=== PATIENT | male | born 1960 | race Caucasian/White ===

== ENCOUNTER 2024-08-16 17:24 | Emergency (ER) | payer SELFPAY ==
[2024-08-16] VITALS (7 sets, daily range): BP systolic 154–165; BP diastolic 94–116; PULSE 50–88; RESP 18–20; TEMP 36.6–37.1; O2SAT 96–99; BMI 28.5
--- NOTE | 2024-08-16 17:27 | ED_ITS ---
<Statement entered by Toma Bravo DO - 08/16/24 19:53> I was consulted by the AROLDO, and we discussed the complexity of the problems being addressed. I approved the treatment and management plan for this patient's care in the emergency department, thus performing a substantive portion of the medical decision making. Toma Bravo DO Discharge Plan Disposition Patient Disposition: Home, Self-Care Condition: Good Prescriptions Prescriptions: New ketorolac 10 mg tablet 10 mg PO Q8H PRN (Reason: pain) 1 Days Qty: 14 0RF tamsulosin 0.4 mg capsule 0.4 mg PO HS Qty: 14 0RF ondansetron 4 mg tablet,disintegrating 4 mg PO QID PRN (Reason: nausea and vomiting) Qty: 10 0RF oxycodone 5 mg tablet 5 mg PO Q8H PRN (Reason: pain) Qty: 12 0RF Referrals Follow up/Referrals: Manav Forte MD [Referring, Urology] - See instructions Julio Galvan MD [Referring, Urology] - See instructions Activity Restrictions/Add. Instructions Additional Instructions/Restrictions: As we discussed I sent medication into your pharmacy. Please strain all your urine. If you develop fever increasing pain or any worsening symptoms please return to the emergency department. I have given you the name of Dr. Galvan who operates in [place] and Dr. Forte who operates in [place]. Clinical Impressions Clinical Impression: Ureterolithiasis Instructions Patient Instructions: DI for Urinary Tract Infection (UTI), DI for Urinary Tract Infection in Children Print Language Print Language: Uzbek Discharge ED Provider: Toma Bravo General Adult HPI <ANGELIA King - Last Filed: 08/16/24 19:16> General Chief complaint: Urogenital-Male Stated complaint: Pain left side,possible kidney stone Time Seen by Provider: 08/16/24 17:27 History of Present Illness HPI narrative: Patient presents for evaluation of left flank pain. Patient had acute onset of left flank pain this afternoon. He reports that it is unchanged. He has a long history of kidney stones and states that he as far as he knows never passed 1 on the stone that he has always had to have either lithotripsy or have it surgically removed. He denies any fever chills shortness of breath hemoptysis hematochezia melena he has nausea but no vomiting or diarrhea. Related Data Previous Rx's ?Medication ?Instructions ?Recorded ketorolac 10 mg tablet 10 mg PO Q8H PRN pain 1 day #14 08/16/24 tabs ondansetron 4 mg disintegrating 4 mg PO QID PRN nausea and 08/16/24 tablet vomiting #10 tabs oxycodone 5 mg tablet 5 mg PO Q8H PRN pain #12 tab s 08/16/24 tamsulosin 0.4 mg capsule 0.4 mg PO HS #14 caps Allergies Allergy/AdvReac Type Severity Reaction Status Date / Time No Known Allergies Allergy Verified 08/16/24 17:38 [facility] <ANGELIA King - Last Filed: 08/16/24 19:16> [facility] Disclaimer: The information contained in this section may have been updated after the patient was seen, as this information can be updated by other users. Social History (Updated 08/16/24 @ 19:16 by ANGELIA King) Smoking Status: Never smoker alcohol intake: never current occupational status: employed Travel in the last 8 weeks?: None Have you lived/traveled outside [place] in past 30 days?: No Contact w/someone who lives/traveled outside US past 30 days?: No Exposure to someone with infectious disease in past 14 days?: No Do you have a fever (greater than 100.4 F or 38 C)?: No Have you tested positive for COVID-19?: No Exposed to someone with COVID-19 in past 14 days?: No Do you have a sore throat?: No Do you have a cough?: No Do you have any weakness?: No Do you have any diarrhea?: No Are you experiencing any unusual bleeding?: No Do you have any muscle aches/pain?: No Do you have any abdominal pain?: No Are you experiencing loss of taste or smell?: No <ANGELIA King - Last Filed: 08/16/24 19:16> ROS Obtained: Yes Systems reviewed as appropriate & no additional complaints except as documented Physical Exam <ANGELIA King - Last Filed: 08/16/24 19:16> General General appearance: alert and in no apparent distress Respiratory Respiratory exam: Present normal lung sounds bilaterally Cardiovascular Cardiovascular exam: Present regular rate Neurological Exam Neurological exam: Present alert and oriented X3 Medical Decision Making <ANGELIA King - Last Filed: 08/16/24 19:16> Medical Records Medical records reviewed: Yes I reviewed the patient's medical records. Screening: Per USPSTF and CDC recommendations, given the prevalence of disease in our region, it is our hospital?s policy to screen for HIV and viral Hepatitis for all patients aged 18 and over and those with ongoing risk factors. Gavin Inquiry Pt receiving controlled substance: No Vital Signs: 08/16/24 17:31 08/16/24 17:32 08/16/24 18:01 Temperature 98.7 F Temperature Source Oral Pulse Rate 55 L 50 L Pulse Rate [Right] 88 Respiratory Rate 20 Blood Pressure 165/116 H 162/94 H Blood Pressure [Right Arm] 165/116 H Blood Pressure Mean 124 127 Blood Pressure Mean [Right Arm] 132 Blood Pressure Source Blood Pressure Position 02 Sat by Pulse Oximetry 99 98 97 Oxygen Delivery Method Room Air 08/16/24 18:31 08/16/24 19:00 08/16/24 19:14 Temperature Temperature Source Pulse Rate 55 L 54 L 54 L Pulse Rate [Right] Respiratory Rate Blood Pressure 162/103 H 156/94 H 154/95 H Blood Pressure [Right Arm] Blood Pressure Mean 122 Blood Pressure Mean [Right Arm] Blood Pressure Source Blood Pressure Position 02 Sat by Pulse Oximetry 97 96 96 Oxygen Delivery Method Room Air 08/16/24 19:34 Temperature 98 F Temperature Source Oral Pulse Rate 60 Pulse Rate [Right] Respiratory Rate 18 Blood Pressure 154/95 H Blood Pressure [Right Arm] Blood Pressure Mean Blood Pressure Mean [Right Arm] Blood Pressure Source Automatic Cuff Blood Pressure Position Sitting 02 Sat by Pulse Oximetry Oxygen Delivery Method Room Air Lab Data Lab results reviewed: Yes I reviewed the patient's lab results. Lab Results 08/16/24 17:30: Urine Color Yellow, Urine Appearance Clear, Urine pH 6.0, Ur Specific [place] >= 1.030, Urine Protein Trace, Urine Glucose (UA) Negative, Urine Ketones Negative, Urine Blood 3+ A, Urine Nitrate Negative, Urine Bilirubin Negative, Urine Urobilinogen 0.2, Ur Leukocyte Esterase Negative, Urine RBC 20-50, Urine WBC Occasional, Ur Squamous Epith Cells Occasional, Urine Bacteria Trace, Hyaline Casts Occ, Urine Mucus 1+ 08/16/24 17:41: WBC 8.0, RBC 4.79, Hgb 14.3, Hct 40.9 L, MCV 85.4, MCH 29.9, MCHC 35.0, RDW 12.4, Plt Count 249, MPV 10.7 H, Neut % (Auto) 74.8, Lymph % (Auto) 15.8, [place] % (Auto) 7.0, Eos % (Auto) 1.1, Baso % (Auto) 0.8, Neut # (Auto) 6.0, Lymph # (Auto) 1.3, [place] # (Auto) 0.6, Eos # (Auto) 0.1, Baso # (Auto) 0.1, Sodium 139, Potassium 4.2, Chloride 104, Carbon Dioxide 27, Anion Gap 12.2, BUN 21 H, Creatinine 0.80, Estimated Creat Clear 105, Estimated GFR 98, Est GFR ( Amer) 119, Glucose 116 H, Calcium 10.0, Total Bilirubin 1.4 H, AST 27, ALT 18, Alkaline Phosphatase 64, Total Protein 7.5, Albumin 4.9, Globulin 2.6, Albumin/Globulin Ratio 1.9 H 08/16/24 17:41 08/16/24 17:41 Orders (Tests/Meds): ED MEDICATIONS Discontinued Medications Generic Name Dose Route Start Last Admin Trade Name Radha PRN Reason Stop Dose Admin Acetaminophen 1,000 mg 08/16/24 17:32 08/16/24 17:42 Acetaminophen 500mg Tab PO 08/16/24 17:33 1,000 mg ONCE ONE Administration Hydromorphone HCl 1 mg 08/16/24 17:58 08/16/24 18:10 Hydromorphone 2mg/Ml Syringe IV 08/16/24 17:59 Not Given ONCE ONE Sodium Chloride 1,000 mls @ 999 mls/hr 08/16/24 17:32 08/16/24 17:42 Sod Chlor 0.9% 1000ml Bag IV 08/16/24 18:32 999 mls/hr .Q1H1M ONE Administration Iopamidol 75 ml 08/16/24 18:20 08/16/24 18:21 Iopamidol-370 (76%);100ml Bottle IV 08/16/24 18:21 75 ml ONCE ONE Administration Ketorolac Tromethamine 15 mg 08/16/24 17:32 08/16/24 17:42 Ketorolac 30mg/Ml Vial IV 08/16/24 17:33 15 mg ONCE ONE Administration Ondansetron HCl 4 mg 08/16/24 17:32 08/16/24 17:43 Ondansetron 4mg/2ml Vial IV 08/16/24 17:33 4 mg ONCE ONE Administration Oxycodone HCl 5 mg 08/16/24 18:46 08/16/24 18:53 Oxycodone 5mg Immediate Release Tablet PO 08/16/24 18:47 5 mg ONCE ONE Administration Sodium Chloride 10 ml 08/16/24 18:20 08/16/24 18:21 Sodium Chloride 0.9% 10ml Syr (Rad Only) IV 08/16/24 18:21 10 ml ONCE ONE Administration Tamsulosin HCl 0.4 mg 08/16/24 17:33 08/16/24 17:42 Tamsulosin 0.4mg Capsule PO 08/16/24 17:34 0.4 mg ONCE ONE Administration ORDERS Category Date Time Status CT abdomen pelvis w con Stat Cat Scan 08/16/24 17:32 Completed CBC w/Auto Diff [Complete Blood Count Auto Diff] Stat Lab 08/16/24 17:41 Completed CMP [Comprehensive Metabolic Panel] Stat Lab 08/16/24 17:41 Completed UA [Urinalysis and Microscopic] Stat Lab 08/16/24 17:30 Completed Medical Decision Narrative: In summary patient is a 63-year-old male who presents to the emergency department for evaluation of left flank pain. Patient is hypertensive on arrival blood pressure 165/116 heart rate 88 sinus rhythm on the bedside monitor breathing 20 times a minute satting 98% on room air upon arrival, afebrile at 90.7. Physical exam is remarkable for tenderness to palpation in the left upper quadrant and CVA tenderness to percussion on the left negative on the right the remainder abdominal exam is benign soft nontender no rebound or guarding or rigidity. Bowel sounds normal active.. Differential diagnosis includes kidney stone versus diverticulitis versus constipation versus gastroenteritis etc. Initial workup will be conducted with hematologic labs urinalysis CT scan abdomen pelvis. Initial interventions include crystalloid bolus Tylenol Toradol Zofran. Initial workup reviewed by me and his hematologic labs show a white count of 8 normal hemoglobin and hematocrit with no neutrophilic shift. BUN is 21 creatinine is 0.8 GFR is 98 and the remainder of his hematologic labs are nonactionable. Urinalysis shows 3+ blood nitrite AzaSite esterase negative. My informed interpretation of his CT scan abdomen pelvis shows stranding around the left kidney along with ureteral dilation down to the point of a mid ureteral stone that appears to be approximately 8 mm in size. Upon repeat evaluation patient reports that his pain is completely gone now. Given this I had a shared decision-making discussion with the patient and explained the options of going home with follow-up with outpatient urology versus transfer. Which I feel is reasonable for going home as he has no evidence of fever urinary tract infection or other red flags. Patient is also comfortable with going home with follow-up with urology as an outpatient. Given that patient will be discharged home with prescription for Toradol Zofran and tamsulosin and the names of urologist in [place] and [place] and strict return precautions. <Toma Bravo, DO - Last Filed: 08/16/24 19:53> Gavin Inquiry Pt receiving controlled substance: Yes Gavin was queried for this patient: Yes Risks and benefits of using a controlled substance: were discussed with pt by me Vital Signs: 08/16/24 17:31 08/16/24 17:32 08/16/24 18:01 Temperature 98.7 F Temperature Source Oral Pulse Rate 55 L 50 L Pulse Rate [Right] 88 Respiratory Rate 20 Blood Pressure 165/116 H 162/94 H Blood Pressure [Right Arm] 165/116 H Blood Pressure Mean 124 127 Blood Pressure Mean [Right Arm] 132 Blood Pressure Source Blood Pressure Position 02 Sat by Pulse Oximetry 99 98 97 Oxygen Delivery Method Room Air 08/16/24 18:31 08/16/24 19:00 08/16/24 19:14 Temperature Temperature Source Pulse Rate 55 L 54 L 54 L Pulse Rate [Right] Respiratory Rate Blood Pressure 162/103 H 156/94 H 154/95 H Blood Pressure [Right Arm] Blood Pressure Mean 122 Blood Pressure Mean [Right Arm] Blood Pressure Source Blood Pressure Position 02 Sat by Pulse Oximetry 97 96 96 Oxygen Delivery Method Room Air 08/16/24 19:34 Temperature 98 F Temperature Source Oral Pulse Rate 60 Pulse Rate [Right] Respiratory Rate 18 Blood Pressure 154/95 H Blood Pressure [Right Arm] Blood Pressure Mean Blood Pressure Mean [Right Arm] Blood Pressure Source Automatic Cuff Blood Pressure Position Sitting 02 Sat by Pulse Oximetry Oxygen Delivery Method Room Air Lab Data Lab Results 08/16/24 17:30: Urine Color Yellow, Urine Appearance Clear, Urine pH 6.0, Ur Specific [place] >= 1.030, Urine Protein Trace, Urine Glucose (UA) Negative, Urine Ketones Negative, Urine Blood 3+ A, Urine Nitrate Negative, Urine Bilirubin Negative, Urine Urobilinogen 0.2, Ur Leukocyte Esterase Negative, Urine RBC 20-50, Urine WBC Occasional, Ur Squamous Epith Cells Occasional, Urine Bacteria Trace, Hyaline Casts Occ, Urine Mucus 1+ 08/16/24 17:41: WBC 8.0, RBC 4.79, Hgb 14.3, Hct 40.9 L, MCV 85.4, MCH 29.9, MCHC 35.0, RDW 12.4, Plt Count 249, MPV 10.7 H, Neut % (Auto) 74.8, Lymph % (Auto) 15.8, [place] % (Auto) 7.0, Eos % (Auto) 1.1, Baso % (Auto) 0.8, Neut # (Auto) 6.0, Lymph # (Auto) 1.3, [place] # (Auto) 0.6, Eos # (Auto) 0.1, Baso # (Auto) 0.1, Sodium 139, Potassium 4.2, Chloride 104, Carbon Dioxide 27, Anion Gap 12.2, BUN 21 H, Creatinine 0.80, Estimated Creat Clear 105, Estimated GFR 98, Est GFR ( Amer) 119, Glucose 116 H, Calcium 10.0, Total Bilirubin 1.4 H, AST 27, ALT 18, Alkaline Phosphatase 64, Total Protein 7.5, Albumin 4.9, Globulin 2.6, Albumin/Globulin Ratio 1.9 H Orders (Tests/Meds): ED MEDICATIONS Discontinued Medications Generic Name Dose Route Start Last Admin Trade Name Freq PRN Reason Stop Dose Admin Acetaminophen 1,000 mg 08/16/24 17:32 08/16/24 17:42 Acetaminophen 500mg Tab PO 08/16/24 17:33 1,000 mg ONCE ONE Administration Hydromorphone HCl 1 mg 08/16/24 17:58 08/16/24 18:10 Hydromorphone 2mg/Ml Syringe IV 08/16/24 17:59 Not Given ONCE ONE Sodium Chloride 1,000 mls @ 999 mls/hr 08/16/24 17:32 08/16/24 17:42 Sod Chlor 0.9% 1000ml Bag IV 08/16/24 18:32 999 mls/hr .Q1H1M ONE Administration Iopamidol 75 ml 08/16/24 18:20 08/16/24 18:21 Iopamidol-370 (76%);100ml Bottle IV 08/16/24 18:21 75 ml ONCE ONE Administration Ketorolac Tromethamine 15 mg 08/16/24 17:32 08/16/24 17:42 Ketorolac 30mg/Ml Vial IV 08/16/24 17:33 15 mg ONCE ONE Administration Ondansetron HCl 4 mg 08/16/24 17:32 08/16/24 17:43 Ondansetron 4mg/2ml Vial IV 08/16/24 17:33 4 mg ONCE ONE Administration Oxycodone HCl 5 mg 08/16/24 18:46 08/16/24 18:53 Oxycodone 5mg Immediate Release Tablet PO 08/16/24 18:47 5 mg ONCE ONE Administration Sodium Chloride 10 ml 08/16/24 18:20 08/16/24 18:21 Sodium Chloride 0.9% 10ml Syr (Rad Only) IV 08/16/24 18:21 10 ml ONCE ONE Administration Tamsulosin HCl 0.4 mg 08/16/24 17:33 08/16/24 17:42 Tamsulosin 0.4mg Capsule PO 08/16/24 17:34 0.4 mg ONCE ONE Administration ORDERS Category Date Time Status CT abdomen pelvis w con Stat Cat Scan 08/16/24 17:32 Completed CBC w/Auto Diff [Complete Blood Count Auto Diff] Stat Lab 08/16/24 17:41 Completed CMP [Comprehensive Metabolic Panel] Stat Lab 08/16/24 17:41 Completed UA [Urinalysis and Microscopic] Stat Lab 08/16/24 17:30 Completed Critical Care <ANGELIA King - Last Filed: 08/16/24 19:16> Critical Care Time Critical Care Time: Yes Attestation: On 08/16/24, the high probability of a clinically significant, sudden or life threatening deterioration of the following system(s) required my full and direct attention, intervention and personal management. The time I documented below is in addition to time spent performing reported procedures but includes the following listed in this critical care notation. Total Time Total Critical Care Time: 30
--- NOTE | 2024-08-16 17:32 | CT_ITS ---
PROCEDURE INFORMATION: Exam: CT Abdomen And Pelvis With Contrast Exam date and time: 08/16/2024 6:17 PM Age: 63 years old Clinical indication: Abdominal pain; Additional info: Left flank pain TECHNIQUE: Imaging protocol: Computed tomography of the abdomen and pelvis with contrast. Radiation optimization: All CT scans at this facility use at least one of these dose optimization techniques: automated exposure control; mA and/or kV adjustment per patient size (includes targeted exams where dose is matched to clinical indication); or iterative reconstruction. Contrast material: ISOVUE; Contrast volume: 75 ml; Contrast route: IV; COMPARISON: No relevant prior studies available. FINDINGS: Lungs: Dependent bilateral lung base opacities favor atelectasis. Liver: Multiple hypoattenuating circumscribed structures of the liver compatible with simple hepatic cysts with the largest measuring 2.7 cm in diameter. Gallbladder and biliary ducts: Normal. No calcified stones. No ductal dilation. Pancreas: Normal. No ductal dilation. Spleen: Multiple benign-appearing calcific densities of the spleen. Adrenal glands: Normal. No mass. Kidneys and ureters: Left proximal ureteral calcific density compatible with ureterolith is related to moderate left hydronephrosis and hydroureter and measures up to 8.1 mm. Stomach and bowel: Unremarkable. No obstruction. No mucosal thickening. Appendix: No evidence of appendicitis. Intraperitoneal space: Unremarkable. No free air. No significant fluid collection. Vasculature: Mild calcific atherosclerotic disease is scattered throughout the abdominal aorta without aneurysmal dilatation. Lymph nodes: Unremarkable. No enlarged lymph nodes. Urinary bladder: Unremarkable as visualized. Reproductive: Unremarkable as visualized. Bones/joints: Moderate loss of intervertebral disc space with degenerative changes involving L2 through S1. Bilateral pars defects of L5 with grade 1 anterolisthesis of L5 over S1. Soft tissues: Normal. IMPRESSION: Moderate left hydronephrosis and hydroureter related to left proximal ureterolith as described above.
[2024-08-16 17:37] LABS: Microscopic, Urine URINE MICROSCOPIC (MICROSCOPIC)
[2024-08-16 17:41] LABS: Appearance,Urine CLEAR (Clear); Bilirubin,Urine Negative (Negative); Blood, Urine 3+ (Negative); Color,Urine YELLOW (Yellow); Glucose,Urine (UA) Negative (Negative); Ketones,Urine Negative (Negative); Leukocyte Esterase,Urine Negative (Negative); Nitrate,Urine Negative (Negative); Protein,Urine TRACE (Negative); Specific Gravity, Urine >= 1.030 (1.005-1.030); Urobilinogen,Urine 0.2 EU/dl (0.2)
[2024-08-16] MEDS: TAMSULOSIN 0.4MG CAPSULE 0.4 MG PO (17:42)
[2024-08-16] MEDS: 0.9 % SODIUM CHLORIDE 1000ML 1,000 ML 999 ML IV (17:42)
[2024-08-16] MEDS: KETOROLAC 30MG/ML VIAL 15 MG IV (17:42)
[2024-08-16] MEDS: ACETAMINOPHEN 500MG TAB 1000 MG PO (17:42)
[2024-08-16] MEDS: ONDANSETRON 4MG/2ML VIAL 4 MG IV (17:43)
[2024-08-16 17:51] LABS: Basophils # 0.1 K/mm3 (0-0.2); Basophils % 0.8 % (0.1-2.0); Eosinophils # 0.1 Kmm3 (0.0-0.4); Eosinophils % 1.1 % (0.1-12.0); Hematocrit 40.9 % (42.0-52.0); Hemoglobin 14.3 g/dL (14.1-18.0); Immature Granulocytes # 0.04 10^3uL; Immature Granulocytes % 0.5 %; Lymphocytes # 1.3 K/mm3 (0.7-4.5); Lymphocytes % 15.8 % (10-50); Mean Corpuscular Hemoglobin 29.9 pg (27.0-31.2); Mean Corpuscular Volume 85.4 fl (80-94); Mean Platelet Volume 10.7 fl (7.4-10.4); Monocytes # 0.6 K/mm3 (0.1-1.0); Neutrophils % 74.8 % (37.0-80.0); Nucleated Red Blood Cells # 0 10^3/uL; Nucleated Red Blood Cells % 0 %; Platelet Count 249 K/mm3 (142-424); Red Blood Count 4.79 M/mm3 (4.60-6.20); Red Cell Distribution Width 12.4 % (11.5-17.5); Red Cell Distribution Width-SD 38.6 fL
[2024-08-16 18:01] LABS: Alanine Aminotransferase 18 U/L (12-78); Albumin Level 4.9 g/dl (3.5-5.0); Albumin/Globulin Ratio 1.9 (1.1-1.8); Alkaline Phosphatase 64 U/L (38-126); Anion Gap 12.2 mEq/L (5-15); Aspartate Amino Transferase 27 U/L (17-59); Bilirubin,Total 1.4 mg/dl (0.2-1.3); Blood Urea Nitrogen 21 mg/dl (9-20); Carbon Dioxide 27 mmol/L (22.0-30.0); Chloride 104 mmol/L (98-107); Creatinine Clearance Estimated 105 mL/min (50-200); Estimated Glomerular Filt Rate 98 ml/min (>60); GFR (African American) 119 ML/MIN (>60); Globulin 2.6 g/dL (1.3-3.2); Glucose 116 mg/dl (74-100); Potassium 4.2 mmoL/L (3.5-5.1); Sodium 139 mmol/L (136-145); Total Protein,Serum 7.5 g/dl (6.3-8.2)
[2024-08-16] MEDS: SODIUM CHLORIDE 0.9% 10ML SYR (RAD ONLY) 10 ML IV (18:21)
[2024-08-16] MEDS: IOPAMIDOL-370 (76%);100ML BOTTLE 75 ML IV (18:21)
[2024-08-16] MEDS: OXYCODONE 5MG IMMEDIATE RELEASE TABLET 5 MG PO (18:53)
[2024-08-16 19:28] LABS: RBC,Urine 20-50 #/hpf (0-3); Squamous Epithelial Cell,Urine Occasional #/hpf (0-5); WBC,Urine Occasional #/hpf (0-3)
[2024-08-16 19:29] LABS: Bacteria,Urine Trace /lpf; Hyaline Casts,Urine OCC #/lpf (0)
[2024-08-16 19:30] LABS: Mucus,Urine 1+ /lpf
--- NOTE | 2024-08-16 19:35 | PC.NURSE ---
IV discontinued. Catheter tip intact. Bleeding controlled.
== END 2024-08-16 19:39 | disposition home or self-care (01) ==
PROVIDERS: Physician Assistant; Emergency Provider Emergency Medicine
DX: N20.1 Calculus of ureter (principal)
CPT/HCPCS: 74177; 80053; 81001; 85025; 96361; 96374; 96375; 99291; J1171; J1885; J2405; J7030; Q9967